=== PATIENT | female | born 1960 | race Caucasian/White ===

== ENCOUNTER 2018-12-23 08:36 | Day surgery (SDC) | payer OTHER ==
[~2018-12-23] VITALS: Ht 152.4 cm; Wt 52.9 kg
[~2018-12-23 08:36] MED LIST: ESOM20 PO; Flonase 0.05% N16 GM; LOSA25 PO; [UNRECOGNIZED DRUG - OTHER] PO
--- NOTE | 2018-12-23 09:14 | NUR ---
[facility] ADMISSION TO UNIT STARTED. Ambulatory in Day Surgery Patient States Post-Procedure ride home has been arranged. Patient reports completing Chlorhexadine shower X2 prior to admission to hospital.
--- NOTE | 2018-12-23 12:28 | NUR ---
Patient up to Ambulate independently. Gait steady. Discharge instructions reviewed with patient. Patient verbalizes understanding. Copy given to patient to take home. Patient States Post-Procedure ride home has been arranged. Discharged via wheelchair to private car for ride home.
--- NOTE | 2018-12-23 15:57 | NUR ---
12/23/18 1557 Violeta William CHART AUDITS.
== END 2018-12-23 22:37 | disposition home or self-care (01) ==
LOC: ORSCMMR 08:36 → ORD 09:45 → ORSCMMR 22:37
PROVIDERS: Surgery
PROC: 0YU50JZ Supplement Right Inguinal Region with Synthetic Substitute, Open Approach (ICD-10-PCS; principal; 2018-12-23 10:15)
DX: K40.90 Unilateral inguinal hernia, without obstruction or gangrene, not specified as recurrent (principal); I10 Essential (primary) hypertension; Z79.899 Other long term (current) drug therapy
CPT/HCPCS: C1781; J0690; J1100; J1885; J2250; J2370; J2405; J3010; J7120